=== PATIENT | male | born 1940 | race Caucasian/White ===

== ENCOUNTER 2019-05-12 16:19 | Emergency (ER) | payer MEDICARE, OTHER ==
[~2019-05-12] VITALS: Ht 165.1 cm; Wt 57.7 kg
[2019-05-12 17:00] VITALS: Ht 165.1 cm; Wt 57.7 kg
[2019-05-12] MEDS ORDERED: IODIXANOL LOCM 100 ML BTL ONE (19:08)
[2019-05-12] MEDS ORDERED: SOD CHLORIDE 0.9% 100 ML ONE (19:08)
[2019-05-12] MEDS ORDERED: SOD CHLORIDE 0.9% 1,000 ML IV STA (19:08)
[2019-05-12 20:18] VITALS: BP 185/108; PULSE 79; RESP 17
[2019-05-12] MEDS ORDERED: HYDROCODONE/APAP (5/325) TAB PO ONE (20:30)
== END 2019-05-12 20:31 | disposition home or self-care (01) ==
LOC: E/R 16:19 → EDBD 16:19 → E/R 20:31
DX: N23 Unspecified renal colic (principal); N28.9 Disorder of kidney and ureter, unspecified; J44.9 Chronic obstructive pulmonary disease, unspecified; I11.0 Hypertensive heart disease with heart failure; I50.9 Heart failure, unspecified; F17.210 Nicotine dependence, cigarettes, uncomplicated; Z86.73 Personal history of transient ischemic attack (TIA), and cerebral infarction without residual deficits
CPT/HCPCS: 75635; 80053; 81001; 83690; 85025; 96360; 99285; J7030; Q9967